=== PATIENT | male | born 1940 | race Caucasian/White ===

== ENCOUNTER 2017-01-24 11:58 | Emergency (ER) | payer OTHER ==
[2017-01-24 15:57] VITALS: BP 131/90
== END 2017-01-24 15:57 | disposition home or self-care (01) ==
LOC: ED 11:58
DX: S50.312A Abrasion of left elbow, initial encounter (principal); S80.212A Abrasion, left knee, initial encounter; S60.417A Abrasion of left little finger, initial encounter; I10 Essential (primary) hypertension; M54.9 Dorsalgia, unspecified; Z88.6 Allergy status to analgesic agent; W18.30XA Fall on same level, unspecified, initial encounter; Y93.89 Activity, other specified; Y92.89 Other specified places as the place of occurrence of the external cause; Y99.8 Other external cause status
CPT/HCPCS: 90715

== ENCOUNTER 2020-03-28 08:55 | Emergency (ER) | payer OTHER ==
[~2020-03-28] VITALS: Ht 175.3 cm; Wt 88.0 kg
[2020-03-28 09:03] VITALS: Ht 175.3 cm; Wt 88.0 kg
[2020-03-28 10:19] VITALS: BP 170/85
== END 2020-03-28 10:19 | disposition home or self-care (01) ==
LOC: ED 08:55
DX: S80.211A Abrasion, right knee, initial encounter (principal); M54.5 Low back pain; W18.30XA Fall on same level, unspecified, initial encounter; Y93.89 Activity, other specified; Y92.89 Other specified places as the place of occurrence of the external cause; Y99.8 Other external cause status
CPT/HCPCS: 90715